=== PATIENT | female | born 1985 | race Caucasian/White ===

== ENCOUNTER 2018-09-01 12:34 | Emergency (ER) | payer BC ==
[2018-09-01 13:14] VITALS: BMI 25.4
[2018-09-01 13:16] VITALS: TEMP 98.9
--- NOTE | 2018-09-01 14:02 | ED PDOC ---
Arrival/HPI - General Chief Complaint: Abdominal Pain Historian: Patient - History of Present Illness Narrative History of Present Illness (Text): 09/01/18 13:43 33 year old female, whose past medical history includes appendectomy (2007), salpingectomy presents to the emergency department complaining of right sided abdominal pain for the past 2 days. Patient reports waxing and waning pain that radiated to the middle of her abdomen. She describes the pain to be sharp and stabbing and a 9 out of 10. Of note, she had a hystosalpingogram a couple of day s ago and is currently on antibiotics. LNMP reported on August 17. Patient denies fevers, chills, headache, dizziness, chest pain, shortness of breath, dyspnea on exertion, cough, nausea, vomiting, diarrhea, back pain, neck pain, or any other complaint. PMD: Dr. Belem Ventura ([facility]) Time/Duration: < week Symptom Course: Intermittent Activities at Onset: Light Context: Home Past Medical History - Provider Review Nursing Documentation Reviewed: Yes - Infectious Disease Hx of Infectious Diseases: None - Psychiatric Hx Substance Use: Yes (Marijuana) - Surgical History Hx Appendectomy: Yes Family/Social History - Physician Review Nursing Documentation Reviewed: Yes Family/Social History: No Known Family HX Smoking Status: Heavy Smoker > 10 Cigarettes Daily Hx Alcohol Use: Yes Frequency of alcohol use: Socially Hx Substance Use: Yes (Marijuana) Allergies/Home Meds Allergies/Adverse Reactions: Allergies prednisone Allergy (Verified 09/01/18 13:15) SHORTNESS OF BREATH Review of Systems - Physician Review All systems were reviewed & negative as marked: Yes - Review of Systems Constitutional: absent: Fevers Respiratory: absent: SOB, Cough Cardiovascular: absent: Chest Pain Gastrointestinal: Abdominal Pain. absent: Diarrhea, Nausea, Vomiting Musculoskeletal: absent: Back Pain, Neck Pain Neurological: absent: Headache, Dizziness Physical Exam Vital Signs Reviewed: Yes Vital Signs Temp Pulse Resp BP Pulse Ox 09/01/18 13:15 98.9 F 98 H 18 133/96 H 100 Temperature: Afebrile Blood Pressure: Hypertensive Pulse: Tachycardic Respiratory Rate: Normal Appearance: Positive for: Well-Appearing, Non-Toxic, Comfortable Pain Distress: None Mental Status: Positive for: Alert and Oriented X 3 - Systems Exam Head: Present: Atraumatic, Normocephalic Pupils: Present: PERRL Extroacular Muscles: Present: EOMI Conjunctiva: Present: Normal Mouth: Present: Moist Mucous Membranes Neck: Present: Normal Range of Motion Respiratory/Chest: Present: Clear to Auscultation, Good Air Exchange. No: R espiratory Distress, Accessory Muscle Use Cardiovascular: Present: Regular Rate and Rhythm, Normal S1, S2. No: Murmurs Abdomen: Present: Tenderness (right upper quadrant tenderness ). No: Distention, Peritoneal Signs, Rebound, Guarding Back: Present: Normal Inspection Upper Extremity: Present: Normal Inspection. No: Cyanosis, Edema Lower Extremity: Present: Normal Inspection. No: Edema Neurological: Present: GCS=15, CN II-XII Intact, Speech Normal Skin: Present: Warm, Dry, Normal Color. No: Rashes Psychiatric: Present: Alert, Oriented x 3, Normal Insight, Normal Concentration Medical Decision Making ED Course and Treatment: 09/01/18 13:43 Impression: 33 year old female who presents to the emergency department complaining of abdominal pain. Differential Diagnosis included but are not limited to: Gallstones Pancreatitis SBO Plan: -- VBG -- Labs -- Toradol -- Urinalysis -- US of abdomen -- POC Urine test -- Reassess and disposition Progress Notes: 09/01/18 16:30 Labs reviewed and unremarkable to elevated bilirubin, leukocytosis or elevated lipase. UA negative for bacteria. US reveals no evidence of gallstones or anterior wall edema. Patient reassessed and feels better. She is advised to follow up with her PCP in 1-2 days. Scripts provided. She is stable for discharge. - Lab Interpretations Lab Results: 09/01/18 14:15 09/01/18 14:15 Lab Results 09/01/18 14:15: Sodium 138, Chloride 104, Potassium 3.9, Carbon Dioxide 24, Anion Gap 14, BUN 8, Creatinine 0.6 L, Est GFR ( Amer) > 60, Est GFR (Non-Af Amer) > 60, Random Glucose 92, Calcium 9.6, Magnesium 1.9, Total Bilirubin 0.2, AST 25, ALT 24, Alkaline Phosphatase 61, Total Protein 7.9, Albumin 4.7, Globulin 3.1, Albumin/Globulin Ratio 1.5, Lipase 51 09/01/18 14:15: pO2 34, VBG pH 7.29 L, VBG pCO2 56.0, VBG HCO3 26.9, VBG Total CO2 28.6 H, VBG O2 Sat (Calc) 70.8 H, VBG Base Excess -0.7 L, VBG Potassium 3.7, Sodium 137.0, Chloride 102.0, Glucose 93, Lactate 1.4, FiO2 21.0, Venous Blood Potassium 3.7 09/01/18 14:15: WBC 7.9, RBC 4.37, Hgb 14.0, Hct 41.6, MCV 95.2, MCH 32.0, MCHC 33.7, RDW 12.0, Plt Count 201, MPV 11.9 H, Gran % 61.1, Lymph % (Auto) 30.4, [place] % (Auto) 5.8, Eos % (Auto) 2.3, Baso % (Auto) 0.4, Gran # 4.81, Lymph # (Auto) 2.4, [place] # (Auto) 0.5, Eos # (Auto) 0.2, Baso # (Auto) 0.03 09/01/18 14:00: Urine Color Light yellow, Urine Appearance Sl cloudy, Urine pH 6.5, Ur Specific [place] 1.020, Urine Protein Negative, Urine Glucose (UA) Negative, Urine Ketones 15 H, Urine Blood Negative, Urine Nitrate Negative, Urine Bilirubin Negative, Urine Urobilinogen 0.2, Ur Leukocyte Esterase Negative I have reviewed the lab results: Yes - RAD Interpretation Narrative RAD Interpretations (Text): 09/01/18 17:00 US of Abdomen reviewed by radiologist, shows: FINDINGS: LIVER: Measures 15.1 cm. Normal echogenicity of the liver parenchyma. No mass. No intrahepatic bile duct dilatation. GALLBLADDER: There are no gallstones, wall thickening or pericholecystic fluid. The sonographic Simon's sign is negative. COMMON BILE DUCT: Measures 4.9 mm. No stones. No dilatation. PANCREAS: Normal in size and echotexture. No mass. No ductal dilatation. RIGHT KIDNEY: Measures 11.0cm. Normal echogenicity. No calculus, mass, or hydronephrosis. LEFT KIDNEY: Measures 11.9cm. Normal echogenicity. No calculus, mass, or hydronephrosis. SPLEEN: Normal in size and contour. No mass. AORTA: No aneurysmal dilatation. IVC: Unremarkable. OTHER FINDINGS: None. IMPRESSION: No cholelithiasis or biliary dilatation. Multimedia Editor: Radiologist - Scribe Statement The provider has reviewed the documentation as recorded by the Scribe Aggie Suzannehyacinth Provider Scribe Attestation: All medical record entries made by the Scribe were at my direction and personally dictated by me. I have reviewed the chart and agree that the record accurately reflects my personal performance of the history, physical exam, medical decision making, and the department course for this patient. I have also personally directed, reviewed, and agree with the discharge instructions and disposition. Disposition/Present on Arrival - Present on Arrival Any Indicators Present on Arrival: No History of DVT/PE: No History of Uncontrolled Diabetes: No Urinary Catheter: No History of Decub. Ulcer: No History Surgical Site Infection Following: None - Disposition Have Diagnosis and Disposition been Completed?: Yes Diagnosis: Abdominal pain, Gastritis Disposition: HOME/ ROUTINE Disposition Time: 16:35 Patient Plan: Discharge Condition: IMPROVED Discharge Instructions (ExitCare): Gastritis, Acute Abdomen (Belly Pain), Adult (DC), Nausea and Vomiting, Adult (DC) Print Language: [place] Additional Instructions: All medical record entries made by the Scribe were at my direction and personally dictated by me. I have reviewed the chart and agree that the record accurately reflects my personal performance of the history, physical exam, medical decision making, and the department course for this patient. I have also personally directed, reviewed, and agree with the discharge instructions and disposition. Prescriptions: Ondansetron ODT [Zofran ODT] 4 mg PO Q6H PRN #4 odt PRN Reason: Nausea/Vomiting Referrals: Xiomara Fox MD [Medical Doctor] - Follow up with primary Forms: [employer] (Niuean), SCHOOL NOTE
[2018-09-01 14:16] LABS: PH,URINE 6.5 (4.7-8.0); URINE APPEARANCE SL CLOUDY (CLEAR); URINE BILIRUBIN NEGATIVE (NEGATIVE); URINE BLOOD NEGATIVE (NEGATIVE); URINE COLOR LIGHT YELLOW (YELLOW); URINE GLUCOSE (UA) NEGATIVE (NEGATIVE); URINE LEUKOCYTE ESTERASE NEGATIVE Leu/uL (NEGATIVE); URINE PROTEIN NEGATIVE mg/dL (<30 mg/dL); URINE UROBILINOGEN 0.2 E.U./dL (<1 E.U./dL)
[2018-09-01 14:23] LABS: VENOUS BLOOD GAS BASE EXCESS -0.7 mmol/L (0.0-2.0); VENOUS BLOOD GAS PO2 34 mm/Hg (30-55); VENOUS BLOOD PH 7.29 (7.32-7.43)
[2018-09-01 14:24] LABS: BASO # 0.03 K/mm3 (0.0-2.0); BASO % 0.4 % (0.0-3.0); EOS # 0.2 (0.0-0.7); EOS % 2.3 % (1.5-5.0); GRAN # 4.81 (1.4-6.5); GRAN % 61.1 % (50.0-68.0); LYMPH # 2.4 (1.2-3.4); LYMPH % 30.4 % (22.0-35.0); MEAN CELL VOLUME 95.2 fl (80.0-105.0); MEAN CORPUSCULAR HGB CONC 33.7 g/dl (31.0-37.0); MEAN PLATELET VOLUME 11.9 fl (7.0-11.0); MONO # 0.5 (0.1-0.6); MONO % 5.8 % (1.0-6.0); RBC 4.37 10^6/uL (3.5-6.1); WHITE BLOOD COUNT 7.9 10^3/uL (4.5-11.0)
[2018-09-01 14:37] LABS: ALB/GLOB RATIO 1.5 (1.1-1.8); ALBUMIN 4.7 g/dL (3.0-4.8); ALT/SGPT 24 U/L (7-56); AST/SGOT 25 U/L (14-36); BLOOD UREA NITROGEN 8 mg/dL (7-21); CALCIUM 9.6 mg/dL (8.4-10.5); GFR NON-AFRICAN AMERICAN > 60; LIPASE 51 U/L (23-300)
--- NOTE | 2018-09-01 16:25 | US ---
Date of service: 09/01/2018 HISTORY: RUQ pain colicky in RUQ COMPARISON: None. TECHNIQUE: Grayscale imaging was performed. FINDINGS: LIVER: Measures 15.1 cm. Normal echogenicity of the liver parenchyma. No mass. No intrahepatic bile duct dilatation. GALLBLADDER: There are no gallstones, wall thickening or pericholecystic fluid. The sonographic Simon's sign is negative. COMMON BILE DUCT: Measures 4.9 mm. No stones. No dilatation. PANCREAS: Normal in size and echotexture. No mass. No ductal dilatation. RIGHT KIDNEY: Measures 11.0cm. Normal echogenicity. No calculus, mass, or hydronephrosis. LEFT KIDNEY: Measures 11.9cm. Normal echogenicity. No calculus, mass, or hydronephrosis. SPLEEN: Normal in size and contour. No mass. AORTA: No aneurysmal dilatation. IVC: Unremarkable. OTHER FINDINGS: None. IMPRESSION: No cholelithiasis or biliary dilatation.
[2018-09-01 16:41] VITALS: BP 122/77; PULSE 70; RESP 16; O2SAT 99
== END 2018-09-01 17:21 | disposition home or self-care (01) ==
LOC: ED 12:34
DX: K29.70 Gastritis, unspecified, without bleeding (principal); R10.9 Unspecified abdominal pain; F17.210 Nicotine dependence, cigarettes, uncomplicated
CPT/HCPCS: 76700; 80053; 81003; 82803; 83690; 83735; 85025; 96374; 99283; J1885